=== PATIENT | female | born 1950 | race Caucasian/White ===

== ENCOUNTER 2017-01-29 20:35 | Emergency (ER) | payer MEDICARE, OTHER ==
[~2017-01-29] VITALS: Ht 170.2 cm; Wt 86.4 kg
[~2017-01-29 20:35] MED LIST: LOM PO; PENT400T PO; TOLT4CAP PO; VITA200C61 PO
[2017-01-29 20:38] VITALS: BP 171/88; PULSE 65; RESP 17; O2SAT 97
[2017-01-29 21:07] LABS: BASOPHILS % (AUTO) 0.3 % (0-3); EOSINOPHILS % (AUTO) 0.3 % (0-5); MONOCYTES % (AUTO) 4.2 % (4-12); Mean Corpuscular Hemoglobin 29.5 pg (27.0-35.0); NEUTROPHILS % (AUTO) 83.4 % (40-74); Platelet Count 253 bil/L (150-400)
--- NOTE | 2017-01-29 21:18 | ED.REPORT ---
HPI-General Illness Date of Service January 29, 2017 ED Provider: Dawson Philip MD Pt is a 66 y/o female w/ a hx of colon CA s/p remote bowel resection, HTN, presenting to the ED via EMS c/o upper abdominal pain onset 15:00 today. She c/ o associated nausea, bilious vomiting. The symptoms lasted until she was brought to the ED. She describes the pain as similar to a muscle strain. She denies bloody stool, hematemesis, fever, chills, CP, diarrhea. She has no hx of cardiac disease or diabetes. He reports that her symptoms have now completely resolved. Able to pass flatus. Normal BM yesterday. She reports that she intermittently becomes constipated and at first she thought she was just becoming constipated though her symptoms became rather severe prompting her emergency room visit. Abdominal surgeries: cholecystectomy, hysterectomy, sigmoid bowel resection Nursing Notes Stated Complaint: ABD PAIN Chief Complaint: Female Abdominal Pain Nursing Notes Reviewed: Yes Allergies: Coded Allergies: codeine (Verified Allergy, Severe, SEIZURES, 01/29/17) Scheduled Pentoxifylline (Pentoxifylline) 400 Mg Tablet.er 400 MG PO BID Tolterodine-Expunged Drug, Do Not Renew! (Tolterodine LA-Expunged Drug, Do Not Renew!) 4 Mg Cap.sr.24h 4 MG PO DAILY Scheduled PRN Diphenoxylate/Atropine (Diphenoxylate-Atrop 2.5-0.025) 2.5 Mg Tablet 2.5 MG PO Q6 PRN PRN For Diarrhea or Loose Stool Ondansetron ODT (Zofran ODT) 4 Mg Tablet 4 MG PO Q4H PRN PRN For Nausea Miscellaneous Medications Vitamin E (Dl,Tocopheryl Acet) (Vitamin E) 200 Unit Capsule 200 UNIT PO General Time Seen by MD: 20:52 Chief Complaint Abdominal pain Hx Obtained From: Patient, EMS Arrived By: Ambulance Sudden in Onset?: Yes Onset Occurred: 5 - 8 hours ago Symptom Duration: Since onset Location: : Abdomen Quality: Painful Severity: Current: Moderate Severity: Maximum: Moderate Similar Sx Previous: Yes Past Medical History Past Medical History Colon CA s/p sigmoid colon resection Hx of headaches Exercise induced asthma Hx kidney stones Osteoarthritis Hypertension Past Surgical History Sigmoid colon resection Incisional hernia repair Hysterectomy Bladder suspension surgery Cholecystectomy Deviated septum Smoking History Never Smoker Social History Alcohol Use: Denies alcohol use Drug Use: Denies drug use Ambulatory Status Independent Review of Systems Full Review of Systems Constitutional: Denies: Chills, Fever Respiratory: Denies: Dyspnea on exertion, Non-productive cough, Parox nocturnal dyspnea, Shortness of breath Cardiovascular: Denies: Chest pain, Dyspnea on exertion GI: Reports: Abdominal pain, Nausea, Vomiting, Denies: Bloody/tarry stool, Hematemesis, Hematochezia Complete sys rev & neg: except as marked. Physical Exam Vital Signs Vital Signs Date Time Temp Pulse Resp B/P Pulse Ox O2 Delivery O2 Flow Rate FiO2 01/29/17 20:38 36.6 65 17 171/88 97 Room Air Initial VS: Reviewed, Vital signs abnormal Head / Eyes: Atraumatic, Normocephalic, PERRL Neck: Supple, Full range of motion Respiratory: Breath sounds normal, Clear to auscultation, No respiratory distress Cardiovascular: Regular rate & rhythm, Heart sounds normal, Intact distal pulses Extremities: Vascular intact, Neuro intact, No swelling, No tenderness Skin: Warm, Dry, No cyanosis Neurologic: Alert, Oriented, Nonfocal Psychiatric: Mood/affect normal, Behavior normal, Normal thought content General/Constitutional: Awake, Alert, No acute distress, Well appearing, Cooperative, Not toxic appearing ENT: Atraumatic, Airway patent Mouth: Positive: Mucous membranes dry Abdomen: Atraumatic, Soft, Non-tender, McBurney's non-tender, No guarding, No rebound, BS normoactive, No distention, No palpable mass Well healed midline surgical incision Interpretation & Diagnostics Lab Results Interpretation Result Diagram: 01/29/17 2100 01/29/17 2100 Test 01/29/17 21:00 01/29/17 21:20 White Blood Count 7.1th/mm3 (3.8-10.1) Red Blood Count 4.58mil/mm3 (3.90-5.20) Hemoglobin 13.5g/dL (12.0-15.6) Hematocrit 40.3% (35.0-46.0) Mean Corpuscular Volume 88.0fL (81-100) Mean Corpuscular Hemoglobin 29.5pg (27.0-35.0) Mean Corpuscular Hemoglobin Concent 33.5% (32.0-37.0) Red Cell Distribution Width 13.6% (12.3-15.4) Platelet Count 253bil/L (150-400) Neutrophils (%) (Auto) 83.4% (40-74) Lymphocytes (%) (Auto) 11.4% (14-46) Monocytes (%) (Auto) 4.2% (4-12) Eosinophils (%) (Auto) 0.3% (0-5) Basophils (%) (Auto) 0.3% (0-3) Prothrombin Time 10.7sec (8.1-12.5) Prothromb Time International Ratio 1.00ratio Sodium Level 135mEq/L (134-144) Potassium Level 4.1mEq/L (3.5-5.2) Chloride Level 99mEq/L (97-108) Carbon Dioxide Level 21mmol/L (18-29) Blood Urea Nitrogen 13mg/dL (8-27) Creatinine 0.57mg/dL (0.57-1.00) Estimat Glomerular Filtration Rate 151mL/min (>59) Glucose Level 161mg/dL (60-99) Lactic Acid Level 1.3mmol/L (0.4-2.0) Calcium Level 9.2mg/dL (8.5-10.1) Magnesium Level 1.8mg/dL (1.6-2.6) Total Bilirubin 0.6mg/dL (0.0-1.2) Aspartate Amino Transf (AST/SGOT) 22U/L (0-50) Alanine Aminotransferase (ALT/SGPT) 20U/L (0-32) Alkaline Phosphatase 121U/L (25-165) Total Protein 6.5g/dL (6.4-8.4) Albumin 3.8g/dL (3.4-5.0) Lipase 28U/L (13-60) Urine Color Straw (YELLOW) Urine Appearance Clear (CLEAR,HAZY) Urine pH 8.0 (5.0-8.0) Urine Specific [place] 1.020 (1.003-1.035) Urine Protein Negativemg/dL (NEG,TRACE) Urine Glucose (UA) Negativemg/dL (NEGATIVE) Urine Ketones Tracemg/dL (NEGATIVE) Urine Occult Blood Negative (NEGATIVE) Urine Nitrite Negative (NEGATIVE) Urine Bilirubin Negative (NEGATIVE) Urine Urobilinogen Normalmg/dL (NORMAL) Urine Leukocyte Esterase Negative (NEGATIVE) Urine RBC 0-2/hpf (0-2) Urine WBC 0-5/hpf (0-5) Urine Epithelial Cells None/hpf (NONE-MOD) Urine Crystals None seen (NONE SEEN) Urine Bacteria Few/hpf (NONE-FEW) Urine Hyaline Casts None/lpf (NONE) Urine Granular Casts None seen (NONE SEEN) Urine Waxy Casts None seen (NONE SEEN) Urine Red Blood Cell Casts None seen (NONE SEEN) Urine White Blood Cell Casts None seen (NONE SEEN) Urine Mucus None seen (None Seen) Urine Trichomonas None seen (NONE SEEN) Urine Yeast None (NONE SEEN) Urinalysis Comment None Urine Culture Reflexed Not indicated CT Abd / Pelvis Interpretation Conclusion: 1 mm mildly obstructing stone of the left UVJ. Presacral soft tissue thickening, nonspecific, may be postsurgical. Subtle irregular lucency in manish right liver lobe is nonspecific, may reflect biliary ectasia from cholecystectomy. This is not fully evaluated, and acute disease is not excluded. Nonspecific left adrenal nodule, and fatty liver. Small hiatal hernia with thickening of the distal esophagus, nonsepcific, may be artifact from incomplete distention, cannot rule out mild esophagitis. Transmitted to the ED by Alisha Luu MD at 22:45 Study type: Abdominal CT IV contrast Interpretation / Wet Read by: Interpret - Radiologist, Discussed w radiologist Re-Eval/Medical Decision Med Decision/Clinical Course Pt is a 66 y/o female w/ a hx of colon CA s/p remote bowel resection, HTN, presenting to the ED via EMS c/o upper abdominal pain onset 15:00 today. She c/ o associated nausea, bilious vomiting. The symptoms lasted until she was brought to the ED. She describes the pain as similar to a muscle strain. She denies bloody stool, hematemesis, fever, chills, CP, diarrhea. She has no hx of cardiac disease or diabetes. He reports that her symptoms have now completely resolved. Able to pass flatus. Normal BM yesterday. She reports that she intermittently becomes constipated and at first she thought she was just becoming constipated though her symptoms became rather severe prompting her emergency room visit. Here in the emergency department the patient is afebrile with stable vital signs no apparent distress. On my assessment her abdominal examination is actually quite benign and she tolerates firm palpation in all 4 quadrants including the epigastrium. Bowel sounds are present on examination. Meds given: Zofran, IV fluids, hydromorphone, patient reported complete improvement in her symptoms. Labs notable as below: CBC: unremarkable CMP: unremarkable except for glucose of 161 LFTs normal Lactic acid normal UA unremarkable CT abdomen/pelvis was notable as documented above. The cause of the patient's episode of abdominal pain and vomiting today remains unclear. Given her history of previous abdominal surgery and colon cancer my primary concern would have been bowel obstruction or mass lesion though there is no evidence thereof. She has previously had cholecystectomy and her symptoms are not suggestive of acute biliary process and she tolerates firm palpation in the right upper quadrant. Bowel sounds are present at this time. Moreover, she is tolerating PO and is in no apparent distress. Well the cause of her presentation remains unclear I see no evidence of an acute surgical intra -abdominal process and laboratory studies are reassuring. Discussed CT scan results with attending radiologist. There are incidental findings of small adrenal nodule and possible tiny renal stone however neither of these seem to correlate with her clinical picture. She has been advised to follow-up with her primary care physician regarding both of these issues. I feel that she is appropriate for outpatient follow-up and she will return immediately should she develop any recurrent symptoms. She is then discharged with a prescription for Zofran as this was quite helpful for her. Prior to discharge follow-up and return precautions were reviewed in detail with the patient who verbalized understanding and agreement with the plan. The patient was discharged in stable condition. Time of Eval: 22:58 Re-Evaluation/Progress Note: Pt rechecked. Discussed negative findigns Informed pt of plan for treatment. Pt understands and agrees with plan for treatment. F/U instructions and RTER warnings given. All questions addressed. Counseled Regarding: Diagnosis, Lab results, Need for follow-up, When/why to return to ED Discharge & Departure Primary Impression: Bilious emesis Nausea presence: with nausea Qualified Code: R11.14 - Bilious vomiting Additional Impressions: Nausea and vomiting Vomiting type: unspecified Vomiting Intractability: unspecified Qualified Code: R11.2 - Nausea with vomiting, unspecified History of colon cancer History of bowel resection Calculus of left kidney Adrenal nodule Disposition: Home Discharge Condition All VS Reviewed: Yes Condition: Stable Patient Instructions: Acute Abdominal Pain (ED) Additional Instructions: Thank you for seeking care at the emergency room. It is difficult for us to make definitive diagnoses in the ED but we believe that you are experiencing abdominal pain and vomiting of uncertain cause. Our primary goal today in the ED was to evaluate you for any life-threatening conditions. Your evaluation was reassuring. Your labs and CT scan today gave no explanation for your symptoms. There was no mass or bowel obstruction. There were some minor incidental findings that do not correlate with your symptoms are are not dangerous at this time. Take Zofran as needed for nausea or vomiting. You should follow-up with your primary doctor in the next week. Please discuss the incidental findings on your CT at that time. You should return to the ED immediately if you develop worsening pain, fevers, uncontrolled vomiting, blood in your vomit or stool, shortness of breath, chest pain, lightheadedness, weakness or any other concerning signs or symptoms. Thank you for letting us partake in your care today. Referrals: Irma Song PA-C (PCP) Scribe Attestation Portions of this note were transcribed by Joe Sevilla. I, Dr. Philip personally performed the history, physical exam and medical decision-making; I reviewed and confirmed the accuracy of the information in the transcribed note. Signed by Dalia Londono, 01/29/[id number] copies to: Irma Song PA-C, Beck O MD January 29, 2017 21:18 JOE SEVILLA January 29, 2017 21:21
[2017-01-29] MEDS ORDERED: 0.9% Sodium Chloride 1,000 ML IV ONE (21:19)
[2017-01-29] MEDS ORDERED: HYDROmorphone 0.5 mg/0.5 mL iSecure Syringe IVPUSH PRN (21:20)
[2017-01-29] MEDS ORDERED: Ondansetron 2 mg/mL 2 mL Inj IVPUSH ONE (21:20)
[2017-01-29 21:32] LABS: Magnesium 1.8 mg/dL (1.6-2.6)
[2017-01-29 21:45] LABS: APPEARANCE,URINE CLEAR (CLEAR,HAZY); COLOR,URINE STRAW (YELLOW); OCCULT BLOOD,URINE NEGATIVE (NEGATIVE); UROBILINOGEN,URINE NORMAL (NORMAL)
[2017-01-29] MEDS ORDERED: ONDA4TAB9 PO (22:30)
[2017-01-29 23:10] VITALS: BP 180/69; PULSE 70; RESP 20; O2SAT 98
--- NOTE | 2017-01-30 08:30 | DRSVH ---
PROCEDURE: CT ABDOMEN AND PELVIS WITH CONTRAST ([id number]) INDICATIONS: abd pain, h/o colon cancer TECHNIQUE: After the administration of intravenous contrast, 5 mm thick sections acquired from the diaphragm to the symphysis. 5 mm coronal and sagittal reformats were acquired. For radiation dose reduction, the following was used: automated exposure control, adjustment of mA and/or kV according to patient siz e. COMPARISON: [facility], [place], NECK/CHEST/ABDOMEN/PELVIS W/CONTRAST, 08/13/2009, 15:30. [facility], [place], PET/CT SKULL TO MID THIGH, 08/21/2009, 11:48. FINDINGS: Image quality: Excellent. ABDOMEN: Lung bases: Lung bases are clear. Heart size is normal. Solid organs: Liver and spleen are normal in size and enhancement. Diffuse fatty infiltration of the liver is noted. Gallbladder is surgically absent. Biliary system is non dilated. Pancreas enhances normally. 1.1 cm left adrenal nodule is stable compared to prior CT scan obtained 08/13/2009. Right adrenal gland is normal.. Kidneys demonstrate normal size and enhancement. 1 mm stone is noted in th e left UVJ causing mild left-sided hydronephrosis. Left renal cysts are stable compared to prior exam ination. Peritoneum and bowel: Small hiatal hernia noted. Bowel loops demonstrate normal wall thickness and c aliber. Anastomotic suture is noted in the distal sigmoid colon. Presacral soft tissue thickening is noted which may be related to postradiation change; please correlate with clinical history. No free f luid or air. Nodes and vessels: No retroperitoneal or mesenteric adenopathy by size criteria. Aorta and inferior vena cava are normal in size. Macro vasculature Miscellaneous: No ventral hernias. PELVIS: Genitourinary: Bladder wall thickness is normal. Miscellaneous: No inguinal hernias or adenopathy. Bones: No suspicious bony lesions. Chronic appearing T12 compression fracture noted. No acute verteb ral body compression fractures. Spine degenerative disc disease and facet arthropathy. IMPRESSION: 1. 1 mm left UVJ stone causing mild left-sided hydronephrosis. 2. Hepatic steatosis. 3. 1.1 cm left adrenal nodule stable compared to 08/13/2009. 4. Presacral soft tissue thickening adjacent to colonic anastomotic sutures possibly representing pos tradiation change. Please correlate with clinical history. 5. Hiatal hernia. Dictated by: Yuliya Persaud MD, PhD on 01/30/2017 at 8:20 Approved by: Yuliya Persaud MD, PhD on 01/30/2017 at 8:28
== END 2017-01-29 23:11 | disposition home or self-care (01) ==
LOC: SED 20:35
DX: R11.14 Bilious vomiting (principal); R11.0 Nausea; N20.0 Calculus of kidney; E27.8 Other specified disorders of adrenal gland; I10 Essential (primary) hypertension; J45.990 Exercise induced bronchospasm; Z85.038 Personal history of other malignant neoplasm of large intestine; Z90.49 Acquired absence of other specified parts of digestive tract; Z87.442 Personal history of urinary calculi; Z88.5 Allergy status to narcotic agent
CPT/HCPCS: 36415; 74177; 80053; 81000; 83605; 83690; 83735; 85025; 85610; 96361; 96374; 96375; 99285; J1170; J2405; J7030; Q9967

== ENCOUNTER 2017-04-24 16:44 | Emergency (ER) | payer MEDICARE, OTHER ==
[~2017-04-24] VITALS: Ht 170.2 cm; Wt 81.4 kg
[~2017-04-24 16:44] MED LIST changes: +ONDA4TAB9 PO
[2017-04-24 16:50] VITALS: BP 187/70; PULSE 58; RESP 20; O2SAT 96
--- NOTE | 2017-04-24 17:06 | ED.REPORT ---
HPI-Abd Pain F 40 and Over Date of Service Apr 24, 2017 ED Provider: Miles Urbina MD Patient is a 67 year old female with a history of colon cancer in remission who presents to the ED via EMS complaining of abdominal pain onset 1300. Associated symptoms include constipation, nausea and vomiting. She denies fever or diarrhea. The patient states that she has had similar symptoms before and at that time she had kidney stones and a hiatal hernia. Nursing Notes Stated Complaint: ABDOMINAL PAIN Chief Complaint: Female Abdominal Pain Nursing Notes Reviewed: Yes Allergies: Coded Allergies: codeine (Verified Allergy, Severe, SEIZURES, 01/29/17) Scheduled Pentoxifylline (Pentoxifylline) 400 Mg Tablet.er 400 MG PO BID Tolterodine-Expunged Drug, Do Not Renew! (Tolterodine LA-Expunged Drug, Do Not Renew!) 4 Mg Cap.sr.24h 4 MG PO DAILY Scheduled PRN Diphenoxylate/Atropine (Diphenoxylate-Atrop 2.5-0.025) 2.5 Mg Tablet 2.5 MG PO Q6 PRN PRN For Diarrhea or Loose Stool Ondansetron ODT (Zofran ODT) 4 Mg Tablet 4 MG PO Q4H PRN PRN For Nausea Miscellaneous Medications Vitamin E (Dl,Tocopheryl Acet) (Vitamin E) 200 Unit Capsule 200 UNIT PO General Time Seen by MD: 17:05 Chief Complaint Abdominal pain Hx Obtained From: Patient Arrived By: Ambulance Sudden in Onset?: Yes Onset Occurred: 1 - 4 hours ago Symptom Duration: Since onset Location: : Abdomen upper Quality: Painful Severity: Current: Moderate Associated with: Reports: Nausea, Vomiting Similar Sx Previous: Yes Past Medical History Past Medical History Colon CA s/p sigmoid colon resection Hx of headaches Exercise induced asthma Hx kidney stones Osteoarthritis Hypertension Past Surgical History Sigmoid colon resection Incisional hernia repair Hysterectomy Bladder suspension surgery Cholecystectomy Deviated septum Smoking History Never Smoker Social History Alcohol Use: Denies alcohol use Drug Use: Denies drug use Other Social History: Good social support Ambulatory Status Independent Review of Systems Constitutional: Denies: Chills, Fever Respiratory: Denies: Non-productive cough, Shortness of breath GI: Reports: Abdominal pain, Constipation, Nausea, Vomiting, Denies: Diarrhea Complete sys rev & neg: except as marked. Skin: Denies Itching, Denies Rash Physical Exam Vital Signs Vital Signs (First) Date Time Temp Pulse Resp B/P Pulse Ox O2 Delivery O2 Flow Rate FiO2 04/24/17 16:50 36.5 58 20 187/70 96 Nasal Cannula Initial VS: Reviewed General/Constitutional: Awake, Alert Respiratory / Chest: Atraumatic, Breath sounds NL, Breath sounds = bilat, No respiratory distress Cardiovascular: Heart rate NL, Regular rhythm, Heart sounds NL Abdomen: Atraumatic, Soft Tenderness/Guarding/Rebound: Positive: Tender LUQ..., Tender RUQ... Back: Atraumatic, Non-tender Head / Eyes: Atraumatic, Normocephalic, PERRL, EOMI Skin: Atraumatic, Color NL, No rash, Warm, Dry Neurologic: Oriented X3, Speech NL Psychiatric: Affect NL, Mood NL Interpretation & Diagnostics Lab Results Interpretation Result Diagram: 04/24/17 1706 04/24/17 1706 Test 04/24/17 17:06 04/24/17 18:09 04/24/17 18:44 White Blood Count 8.4th/mm3 (3.8-10.1) Red Blood Count 4.98mil/mm3 (3.90-5.20) Hemoglobin 14.8g/dL (12.0-15.6) Hematocrit 43.3% (35.0-46.0) Mean Corpuscular Volume 86.9fL (81-100) Mean Corpuscular Hemoglobin 29.7pg (27.0-35.0) Mean Corpuscular Hemoglobin Concent 34.2% (32.0-37.0) Red Cell Distribution Width 13.7% (12.3-15.4) Platelet Count 147bil/L (150-400) Neutrophils (%) (Auto) 85.3% (40-74) Lymphocytes (%) (Auto) 9.3% (14-46) Monocytes (%) (Auto) 2.5% (4-12) Eosinophils (%) (Auto) 2.3% (0-5) Basophils (%) (Auto) 0.1% (0-3) Prothrombin Time 13.8sec (8.1-12.5) Prothromb Time International Ratio 1.28ratio Sodium Level 139mEq/L (134-144) Potassium Level 4.2mEq/L (3.5-5.2) Chloride Level 100mEq/L (97-108) Carbon Dioxide Level 18mmol/L (18-29) Blood Urea Nitrogen 10mg/dL (8-27) Creatinine 0.60mg/dL (0.57-1.00) Estimat Glomerular Filtration Rate 142mL/min (>59) Glucose Level 147mg/dL (60-99) Calcium Level 9.1mg/dL (8.5-10.1) Magnesium Level 1.7mg/dL (1.6-2.6) Total Bilirubin 0.7mg/dL (0.0-1.2) Aspartate Amino Transf (AST/SGOT) 23U/L (0-50) Alanine Aminotransferase (ALT/SGPT) 15U/L (0-32) Alkaline Phosphatase 102U/L (25-165) Total Protein 7.4g/dL (6.4-8.4) Albumin 4.5g/dL (3.4-5.0) Lipase 27U/L (13-60) Urine Color Yellow (YELLOW) Urine Appearance Clear (CLEAR,HAZY) Urine pH 7.0 (5.0-8.0) Urine Specific [place] 1.010 (1.003-1.035) Urine Protein Negativemg/dL (NEG,TRACE) Urine Glucose (UA) 100mg/dL (NEGATIVE) Urine Ketones 15mg/dL (NEGATIVE) Urine Occult Blood Trace (NEGATIVE) Urine Nitrite Negative (NEGATIVE) Urine Bilirubin Negative (NEGATIVE) Urine Urobilinogen Normalmg/dL (NORMAL) Urine Leukocyte Esterase Negative (NEGATIVE) Urine RBC 0-2/hpf (0-2) Urine WBC 0-5/hpf (0-5) Urine Epithelial Cells Occasional/hpf (NONE-MOD) Urine Crystals None seen (NONE SEEN) Urine Bacteria Few/hpf (NONE-FEW) Urine Hyaline Casts None/lpf (NONE) Urine Granular Casts None seen (NONE SEEN) Urine Waxy Casts None seen (NONE SEEN) Urine Red Blood Cell Casts None seen (NONE SEEN) Urine White Blood Cell Casts None seen (NONE SEEN) Urine Mucus None seen (None Seen) Urine Trichomonas None seen (NONE SEEN) Urine Yeast None (NONE SEEN) Urinalysis Comment None Urine Culture Reflexed Not indicated Lactic Acid Level 2.0mmol/L (0.4-2.0) CT Abd / Pelvis Interpretation IMPRESSION: 1. Cause of abdominal pain is not appreciated. 2. Transient hepatic attenuation difference in the right lobe of the liver noted in 2014 now shows an area of liver parenchyma deficit as well as some transient hepatic attenuation contrast difference. This appearance is not that of metastatic disease. 3. The no evidence of metastatic disease is seen in this patient with previous sigmoid colon surgery. The unusual appearance of the sacrum and the pre-sacral pre-coccygeal soft tissue suggesting previous radiation change are unchanged since 2014. No adenopathy is seen. 4. Lipomatous degeneration of the ileocecal valve. Small to moderate size hiatal hernia. No change in the left adrenal nodule since older studies. Dictated by: Geraldo Voss M.D. on 04/24/2017 at 18:33 Approved by: Geraldo Voss M.D. on 04/24/2017 at 18:51 Interpretation / Wet Read by: Interpret - Radiologist Re-Eval/Medical Decision Med Decision/Clinical Course Lab and CT findings are reassuring. No evidence of ischemic bowel or acute abdominal process at this time. I believe she must have some degree of colic and I recommended outpatient follow-up. Re-Evaluation/Progress : Time of Eval: 19:57 Re-Evaluation/Progress Note: Discussed all results and plan for discharge. Patient understands and agrees to plan. All questions were addressed. Counseled Regarding: Diagnosis, Lab results, Need for follow-up, When/why to return to ED Discharge & Departure Primary Impression: Abdominal pain Abdominal location: right upper quadrant Qualified Code: R10.11 - Right upper quadrant pain Additional Impression: Nausea and vomiting Vomiting type: unspecified Vomiting Intractability: intractable Qualified Code: R11.2 - Nausea with vomiting, unspecified Disposition: Home Discharge Condition All VS Reviewed: Yes Condition: Stable Patient Instructions: Acute Abdominal Pain (ED) Additional Instructions: Your labs and CT were normal and reassuring. You can try using Magnesium Citrate for constipation. You can also take Tylenol as needed for pain. Hydrocodone/APAP as needed for more severe pain. Take 1 Zofran every 4 hours as needed for nausea. Follow up with your primary care physician later this week. Return to the emergency department if you develop any new or concerning symptoms. Referrals: Irma Song PA-C (PCP) Scribe Attestation Portions of this note were transcribed by Alycia Germain. I, Dr. Urbina personally performed the history, physical exam and medical decision-making; I reviewed and confirmed the accuracy of the information in the transcribed note. Signed by: Dalia Teixeira, 04/24/17 copies to: Irma Song PA-C, Kirk H MD Apr 24, 2017 17:06 Evelia Germain Apr 24, 2017 17:56
[2017-04-24 17:09] LABS: BASOPHILS % (AUTO) 0.1 % (0-3); Platelet Count 147 bil/L (150-400)
[2017-04-24 17:13] LABS: EOSINOPHILS % (AUTO) 2.3 % (0-5); MONOCYTES % (AUTO) 2.5 % (4-12); Mean Corpuscular Hemoglobin 29.7 pg (27.0-35.0); Mean Corpuscular Volume 86.9 fL (81-100); NEUTROPHILS % (AUTO) 85.3 % (40-74)
[2017-04-24 17:30] LABS: Magnesium 1.7 mg/dL (1.6-2.6)
[2017-04-24] MEDS ORDERED: 0.9% Sodium Chloride 1,000 ML IV ONE (17:54)
[2017-04-24] MEDS ORDERED: Ondansetron 2 mg/mL 2 mL Inj IVPUSH PRN (17:55)
[2017-04-24] MEDS ORDERED: HYDROmorphone 1 mg/mL Inj IVPUSH PRN (17:55)
[2017-04-24 18:36] LABS: INR 1.28 ratio
[2017-04-24 18:47] LABS: APPEARANCE,URINE CLEAR (CLEAR,HAZY); COLOR,URINE YELLOW (YELLOW)
[2017-04-24 18:48] LABS: OCCULT BLOOD,URINE TRACE (NEGATIVE); UROBILINOGEN,URINE NORMAL (NORMAL)
--- NOTE | 2017-04-24 18:53 | DRSVH ---
PROCEDURE: CT ABDOMEN AND PELVIS WITH CONTRAST ([id number]) INDICATIONS: abd pain TECHNIQUE: After the administration of intravenous contrast, 5 mm thick sections acquired from the diaphragm to the symphysis. 5 mm coronal and sagittal reformats were acquired. For radiation dose reduction, the following was used: automated exposure control, adjustment of mA and/or kV according to patient siz e. COMPARISON: [facility], CT, CHEST/ABD/PELVIS W/CON (PNL), 01/27/2014, 10:55. [facility], CT, CT ABD PELVIS W CON, 01/29/2017, 21:57. FINDINGS: Image quality: Good ABDOMEN: Lung bases: Lung bases are clear. Heart size is normal. There is a small to moderate-sized hiatal h ernia. Solid organs: Liver and spleen are normal in size and enhancement except in the lateral aspect of th e right lobe of the liver or a transient hepatic attenuation difference was noted in 2013. There is n ow some slightly decreased area of attenuation and some focal contour defect in the liver consistent with loss of tissue. The finding is not thought to be that of a metastatic lesion. Gallbladder has be en removed.. Biliary system is non dilated. Pancreas enhances normally. An 8mm left adrenal nodule is unchanged since the CT in 2013.. Kidneys demonstrate normal size and enhancement, without hydrone phrosis. Peritoneum and bowel: Bowel loops demonstrate normal wall thickness and caliber. No free fluid or a ir. Surgery in the region of the sigmoid colon and in the pelvis is present. There is noted to be so me lipomatous degeneration of the ileocecal valve. 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 Nodes and vessels: No retroperitoneal or mesenteric adenopathy by size criteria. Aorta and inferior vena cava are normal in size. Miscellaneous: No ventral hernias. PELVIS: Genitourinary: Bladder wall thickness is normal. Miscellaneous: No inguinal hernias or adenopathy. Bones: Abnormal bone appearance of the sacrum and SI joints is unchanged since 2013 and may be a func tion of radiation therapy. I think less likely would be metastatic disease SI joint inflammation or d egenerative change. The T12 compression fracture wedging deformity is unchanged since 01/29/17 but is new since 2013. No bone metastases are identified. No vertebral body compression fractures. IMPRESSION: 1. Cause of abdominal pain is not appreciated. 2. Transient hepatic attenuation difference in the right lobe of the liver noted in 2014 now shows an area of liver parenchyma deficit as well as some transient hepatic attenuation contrast difference. This appearance is not that of metastatic disease. 3. The no evidence of metastatic disease is seen in this patient with previous sigmoid colon surgery. The unusual appearance of the sacrum and the pre-sacral pre-coccygeal soft tissue suggesting previou s radiation change are unchanged since 2014. No adenopathy is seen. 4. Lipomatous degeneration of the ileocecal valve. Small to moderate size hiatal hernia. No change in the left adrenal nodule since older studies. Dictated by: Geraldo Voss M.D. on 04/24/2017 at 18:33 Approved by: Geraldo Voss M.D. on 04/24/2017 at 18:51
[2017-04-24] MEDS ORDERED: _HYDROcodone/APAP 5-325 mg Tablet PO PRN (20:00)
[2017-04-24] MEDS ORDERED: _Ondansetron ODT 4 mg Tablet PO PRN (20:00)
[2017-04-24] MEDS ORDERED: HYDR-4003 PO (20:03)
[2017-04-24 20:05] VITALS: BP 193/72; PULSE 60; RESP 16; O2SAT 98
[2017-04-24 20:38] VITALS: BP 193/72; PULSE 60; RESP 16; O2SAT 98
== END 2017-04-24 20:39 | disposition home or self-care (01) ==
LOC: EDBD 16:44 → SED 16:44
DX: R10.11 Right upper quadrant pain (principal); R11.2 Nausea with vomiting, unspecified; I10 Essential (primary) hypertension; Z85.038 Personal history of other malignant neoplasm of large intestine; Z90.710 Acquired absence of both cervix and uterus; Z88.5 Allergy status to narcotic agent
CPT/HCPCS: 36415; 74177; 80053; 81000; 83605; 83690; 83735; 85025; 85610; 96361; 96374; 96375; 99285; J1170; J2405; J7030; Q9967